=== PATIENT | male | born 1995 | race Caucasian/White ===

== ENCOUNTER 2021-03-23 11:38 | Emergency (ER) | payer OTHER, SELFPAY ==
[2021-03-23 12:44] VITALS: BP 151/69; PULSE 90; RESP 14; TEMP 36.6; O2SAT 99; BMI 25.7
--- NOTE | 2021-03-23 13:05 | ED_ITS ---
HPI - Skin/Abscess/Foreign Bdy <CARMEN Sanford - Last Filed: 03/23/21 18:10> General Chief complaint: Skin/Abscess/Foreign Body Stated complaint: ingrown toenail Time Seen by Provider: 03/23/21 13:03 Source: patient Mode of arrival: Ambulatory Limitations: no limitations History of Present Illness HPI narrative: 26-year-old male presents to the emergency department complaining of ingrown left great toenail any history of the same. He states it is currently in a growing back phase from the last time it was completely removed. He states he has had partial nail removals and full nail removal. Patient states his tetanus is up-to-date. He denies any fever, redness or streaking up his foot or leg. Related Data Home Medications Medication Instructions Recorded Confirmed No Known Home Medications 03/23/21 03/23/21 Allergies Allergy/AdvReac Type Severity Reaction Status Date / Time ceftriaxone [From Rocephin] Allergy Severe Hives Verified 03/23/21 12:47 Review of Systems <CARMEN Sanford - Last Filed: 03/23/21 18:10> Review of Systems Narrative: General: denies fever, chills, malaise, sweats, fatigue Head/Neck: denies headache, neck pain, dizziness Eyes: denies visual changes, eye pain Cardio: denies chest pain, palpitations, edema Respiratory: denies dyspnea, cough, orthopnea GI: denies abdominal pain, nausea, vomiting, or diarrhea : denies dysuria MSK: denies joint pain, muscle weakness Skin: denies rash, left great toe with ingrown toenail, redness and inflammation Neuro: denies numbness, tingling Patient History <CARMEN Sanford - Last Filed: 03/23/21 18:10> Social History Smoking Status: Current every day smoker Smoking Status: Current every day smoker tobacco type: vaping alcohol intake frequency: 3 or more drinks per day Substance Use Type: does not use Exam <CARMEN Sanford - Last Filed: 03/23/21 18:10> Narrative Exam Narrative: Independently reviewed vitals signs and nursing notes. General: Cooperative, comfortable, in no acute distress, well developed and well groomed Head/Neck: Normal visual inspection and supple, atraumatic, no JVD or lymphadenopathy. Normal facial exam Eyes: Pupils equal round and reactive, EOMI, conjunctiva normal, no scleral icterus or injections Nose: External nose normal, nares patent, no rhinorrhea, without purulent drainage Mouth/Throat: uvula midline, moist mucus membranes Cardio: Regular rate and rhythm, no peripheral edema, warm extremities Respiratory: Normal respiratory effort, able to speak in complete sentences without audible wheezing, stridor, or rales. No retractions. GI: Abdomen non-distended MSK: Moves all extremities, neurovascularly intact Skin: Normal capillary refill, no rash, ingrown medial aspect of his left right great toe, purulent discharge, blanchable erythema, +edema, cap refill less than 2 seconds Neuro: Normal speech and cognition, normal gait, A&O x3, tone normal, moves all extremities Psych: Mental status is grossly normal, speech is clear, congruent mood, normal affect Initial Vital Signs Initial Vital Signs: Vital Signs Temperature 97.8 F 03/23/21 12:44 Pulse Rate 90 03/23/21 12:44 Respiratory Rate 14 03/23/21 12:44 Blood Pressure 151/69 H 03/23/21 12:44 Pulse Oximetry 99 03/23/21 12:44 Procedures <CARMEN Sanford - Last Filed: 03/23/21 18:10> Nerve Block Nerve Block 1: Time out performed: Yes Local Anesthetic: lidocaine 1% and bupivacaine 0.25% Amount of anesthesia used (mL): 5 Side: right Nerve Blocks: digital Procedure Successful: Yes Patient Tolerated Procedure: Well Course <CARMEN Sanford - Last Filed: 03/23/21 18:10> Orders Ordered: Discontinued Medications Acetaminophen (Acetaminophen 325 Mg Tablet) 975 mg PO NOW ONE Stop: 03/23/21 13:06 Last Admin: 03/23/21 13:21 Dose: 975 mg Documented by: MADDI Bupivacaine HCl (Bupivacaine 0.25% (Pf) Vial) 30 ml INJ INTRA-OP ONE Stop: 03/23/21 13:23 Last Admin: 03/23/21 13:27 Dose: 30 ml Documented by: MADDI Diphtheria/Tetanus/Acell Pertussis (Tet,Diph,Pertuss(Acell),Vac/Pf 0.5 Ml Syringe) 0.5 ml IM .ONCE ONE Stop: 03/23/21 13:06 Last Admin: 03/23/21 13:26 Dose: Not Given Documented by: MADDI Ketorolac Tromethamine (Ketorolac 30 Mg/Ml Vial) 15 mg IM NOW ONE Stop: 03/23/21 13:04 Last Admin: 03/23/21 13:22 Dose: 15 mg Documented by: MADDI Lidocaine/Sodium Bicarbonate (Lido 1%/Sod Bicarb 8.4% (10ml) 10 Ml Syringe) 10 ml INJ NOW ONE Stop: 03/23/21 13:04 Last Admin: 03/23/21 13:21 Dose: 10 ml Documented by: MADDI Silver Nitrate/Potassium Nitrate (Silver Nitrate Stick) 2 each TOP NOW ONE Stop: 03/23/21 13:13 Last Admin: 03/23/21 13:22 Dose: 2 each Documented by: MADDI Vital Signs Vital signs: Vital Signs - 8 hr 03/23/21 12:44 03/23/21 14:14 Temperature 97.8 F Pulse Rate 90 82 Respiratory Rate 14 Blood Pressure 151/69 H 146/86 H Pulse Oximetry 99 97 MDM - Skin/Abscess/Foreign Bdy <CARMEN Sanford - Last Filed: 03/23/21 18:10> [facility] Narrative Medical decision making narrative: 26-year-old male presents to the emergency department for ingrown left great toenail. Patient has a history of this, he has had partial nail removal and full nail removals in the past, he states this has been ongoing and his current nail is still growing out from the last time it was fully removed. Left great toe had erythema and purulence to the medial aspect. Digital block performed with 0.25% and bupivacaine 1% lidocaine with sodium bicarb with good effect. Partial nail removed successfully and found large sharp ingrowing portion in the proximal eponychium growing medially. This was fully removed, cautery using silver nitrate to the germinal matrix along the medial side where the nail was removed. Patient tolerated procedure well without pain. Encouraged to keep clean, dry, [place] Podiat[place] Patient is appropriate and amenable to discharge home. Vital signs are stable on repeat examination is unremarkable. Patient has been informed of results. Patient has been given strict return to ER precautions for any new or worsening symptoms. Patient understands to follow up closely with outpatient providers as instructed. Patient understands plan and agrees to discharge home. All questions and concerns answered at this time. Discharge Plan Departure Patient Disposition: Home Clinical Impression: Ingrown nail of great toe of right foot Instructions: DI for Ingrown Toenail Activity Restrictions/Additional Instructions: *You have been diagnosed with ingrown toenail of your right great toe. Please keep the distal edge of the nail clean underneath and allowed to grow so that you can have a normal toenail and cut straight across. Please use a would stick to help push the skin over on the right as it grows so that it does not head down the same track again. I wish you the best of jasen with her toes, establishing care with Podiatry is a great plan for you. Please keep your appointment with Podiatry and have them follow up on how he did. The wish you the best of jasen, come back if you need us. Take ibuprofen and Tylenol as needed for pain. Try to keep it elevated so does get too swollen and cover with a Band-Aid to help keep your socks clean. *What to do: *Please continue to take your regular medications as directed. [ ] New medication prescriptions sent to your pharmacy: [ ] [ ] New medication written as a paper prescription [x ] No new medications given *Please follow up with your primary care provider in 2-3 days, call for an appointment. Let them know you were seen in the Emergency Department and that we ask that you be seen in follow up. We will electronically transmit a record of today's note if your PCP is in our system *If you do not have a primary care provider please contact the [facility] Resource line at [phone]. They will ask some questions about your medical history and help get you set up with a doctor in the community. *Return to Emergency Department if you should have any new, worsening or concerning symptoms, such as [fever greater than 101F, chills, worsening pain, persistent vomiting or other bothersome symptoms] Prescriptions: No Action No Known Home Medications 0RF
[2021-03-23] MEDS: ACETAMINOPHEN 325 MG TABLET 975 MG PO (13:21)
[2021-03-23] MEDS: LIDO 1%/SOD BICARB 8.4% (10ML) 10 ML SYRINGE INJ (13:21)
[2021-03-23] MEDS: KETOROLAC 30 MG/ML VIAL 15 MG IM (13:22)
[2021-03-23] MEDS: SILVER NITRATE STICK 2 EACH TOP (13:22)
[2021-03-23] MEDS: BUPIVACAINE 0.25% (PF) VIAL 30 ML INJ (13:27)
[2021-03-23 14:14] VITALS: BP 146/86; PULSE 82; O2SAT 97
== END 2021-03-23 14:15 | disposition home or self-care (01) ==
PROVIDERS: Emergency Provider Nurse Practitioner Critical Care Medicine
DX: L60.0 Ingrowing nail (principal); Z23 Encounter for immunization
CPT/HCPCS: 11750; 64450; 90471; 96372; 99283; 99284; J1885